=== PATIENT | male | born 1955 | race Caucasian/White ===

== ENCOUNTER → 2020-06-16 | Outpatient (CLI) | payer OTHER ==
--- NOTE | 2020-07-06 08:18 | PF ---
[place] [address] PULMONARY FUNCTION REPORT Name: TRELL KILPATRICK Room: [facility].#: [id number] Admission: 06/16/20 Attend Phys: Jasmeet Landin MD Discharge: Date of : 59 Report #: [id number] THIS REPORT FOR: cc: Orlin Guzman MD, Richard K. MD Pervez, Adeel MD ~ DOC #: [id number] Amado Mora MD DATE OF VISIT: 06/16/2020 The FEV1/FVC ratio is 77% with an FVC normal at 87%. The FEV1 is also normal at 88%. The FEF 25-75 is also normal at 92%. After the administration of a bronchodilator, there is no significant increase in any of these values. The patient's post-bronchodilator FEV1 is 3.62 liters. Only a spirometry was performed. IMPRESSION: Normal spirometry. MD FRANCHESCA Jean Baptiste/STERLING/MICHELLE <ELECTRONICALLY SIGNED> By: Amado Mora MD 07/06/20 0818 [id number] Mora MD /nt
== END ==
LOC: M.PUL 06-04 09:30
PROVIDERS: ATTEND Orthopaedic Surgery
DX: D86.0 Sarcoidosis of lung (principal); R06.02 Shortness of breath